=== PATIENT | female | born 1995 | race Caucasian/White ===

== ENCOUNTER 2019-12-26 15:51 | Emergency (ER) | payer OTHER ==
[~2019-12-26] VITALS: Ht 165.1 cm; Wt 54.0 kg
== END 2019-12-26 20:36 | disposition home or self-care (01) ==
LOC: ER 15:51
DX: N39.0 Urinary tract infection, site not specified (principal); N83.291 Other ovarian cyst, right side; U07.1 COVID-19

== ENCOUNTER 2023-01-05 14:34 | Outpatient (CLI) | payer OTHER | END 2023-01-05 14:37 | disposition home or self-care (01) | LOC: RAD 14:34 → LAB 14:34 | DX: Z01.818 Encounter for other preprocedural examination (principal) ==